=== PATIENT | male | born 1970 | race Caucasian/White ===

== ENCOUNTER 2022-12-30 15:34 | Emergency (ER) | payer OTHER, SELFPAY ==
[2022-12-30 15:35] VITALS: BP 153/90; PULSE 92; RESP 17; TEMP 36.7; O2SAT 97; BMI 27.8
--- NOTE | 2022-12-30 15:40 | PC.NURSE ---
DR [facility] AT BEDSIDE
--- NOTE | 2022-12-30 15:45 | HMH.EDGENADL ---
Discharge Plan Disposition Patient Disposition: Home, Self-Care Condition: Good Referrals Follow up/Referrals: Josh Mena [Primary Care Provider] - See instructions Activity Restrictions/Add. Instructions Additional Instructions/Restrictions: You were evaluated in the emergency department today. Please keep your wound clean and dry. Do not submerge under any water. Your stitches will need to be removed in 7 to 10 days. Return to the emergency department for new or worsening symptoms. Clinical Impressions Clinical Impression: Laceration of right thigh Qualifiers: Encounter type: initial encounter Qualified Code(s): S71.111A - Laceration without foreign body, right thigh, initial encounter Instructions Patient Instructions: DI for Laceration Repair Discharge ED Provider: Violeta Curiel General Adult HPI General Chief complaint: Wound/Laceration Stated complaint: RT upper thigh lac Time Seen by Provider: 12/30/22 15:39 Mode of Arrival: Ambulatory Source of Information: Patient Limitations: No Limitations Description of Symptoms (Recalled from ER Triage Doc. by RN): LACERATION TO RIGHT UPPER THIGH WITH UTILITY KNIFE History of Present Illness HPI narrative: Patient is a 52-year-old male who denies significant past medical history presented to the emergency department for evaluation with concern for a laceration to his right upper thigh. He was using a utility knife when it broke, and he cut the lateral aspect of his right upper thigh. Wound is hemostatic. No other injuries noted. He is unsure when his last tetanus shot was. He was well prior to this. No other concerns at this time. Related Data Allergies Allergy/AdvReac Type Severity Reaction Status Date / Time No Known Allergies Allergy Verified 12/30/22 15:52 [facility] Disclaimer: The information contained in this section may have been updated after the patient was seen, as this information can be updated by other users. Social History Smoking Status: Current every day smoker alcohol intake: never current occupational status: employed Travel in the last 8 weeks: None ROS Obtained: Yes All systems reviewed & no additional complaints except as documented Physical Exam General General appearance: alert and in no apparent distress Head Head exam: atraumatic and normocephalic Eye Eye exam: Present normal appearance, PERRL and EOMI ENT ENT exam: Present normal exam, normal oropharynx, mucous membranes moist and normal external ear exam Neck Neck exam: Present normal inspection, full ROM and trachea midline; Absent tenderness Chest Chest inspection: Present normal inspection and symmetric chest wall rise; Absent tenderness Respiratory Respiratory exam: Present normal lung sounds bilaterally; Absent respiratory distress, wheezes, stridor or accessory muscle use Cardiovascular Cardiovascular exam: Present regular rate and normal rhythm Abdominal Exam Abdominal exam: Present soft; Absent distention, tenderness or guarding Extremities Exam Extremities exam: Present normal inspection, full ROM and normal capillary refill; Absent tenderness or edema Back Exam Back exam: Present normal inspection and full ROM; Absent tenderness Neurological Exam Neurological exam: Present alert, oriented X3, CN II-XII intact and normal gait; Absent motor sensory deficit Psychiatric Psychiatric exam: Present normal affect and normal mood Skin Skin exam: Present warm, dry and other (2.5Centimeter laceration to the lateral aspect of the right upper thigh. Wound is linear, superficial, and hemostatic.) Medical Decision Making Medical Records Medical records reviewed: Yes I reviewed the patient's medical records. Abdulaziz Inquiry Pt receiving controlled substance: No Vital Signs: 12/30/22 15:35 12/30/22 15:56 12/30/22 16:30 Temperature 98.0 F Temperature Source Oral Pulse Rate 77 75 Pulse Rate [Radial
[2022-12-30 15:56] VITALS: BP 122/73; PULSE 77; O2SAT 96
[2022-12-30 16:30] VITALS: BP 127/80; PULSE 75; O2SAT 95
[2022-12-30 17:00] VITALS: BP 126/86; PULSE 65; O2SAT 97
[2022-12-30 17:15] VITALS: BP 126/86; PULSE 72; RESP 17; TEMP 36.8; O2SAT 96
== END 2022-12-30 17:15 | disposition home or self-care (01) ==
PROVIDERS: Emergency Provider Emergency Medicine; PCP Family Medicine
DX: S71.111A Laceration without foreign body, right thigh, initial encounter (principal); W26.0XXA Contact with knife, initial encounter; F17.200 Nicotine dependence, unspecified, uncomplicated; Z23 Encounter for immunization
CPT/HCPCS: 12001; 90715; 96372; 99283

== ENCOUNTER 2023-09-02 17:08 | Emergency (ER) | payer OTHER, SELFPAY ==
[2023-09-02 17:25] VITALS: BP 143/77; PULSE 74; RESP 20; TEMP 36.9; O2SAT 96; BMI 29.5
--- NOTE | 2023-09-02 17:31 | EXP.UTC ---
Discharge Plan Disposition Patient Disposition: Home, Self-Care Condition: Good Prescriptions Prescriptions: New prednisone 20 mg tablet 20 mg PO BID 3 Days Qty: 6 0RF polymyxin B sulf-trimethoprim 10,000 unit- 1 mg/mL drops 1 drp Eye-Left Q3H 7 Days Qty: 10 0RF Rx Instructions: while awake; do not exceed 6 doses in 24 hours No Action lamotrigine 150 mg tablet 150 mg PO DAILY atorvastatin 80 mg Tablet 80 mg PO HS amlodipine 10 mg Tablet 10 mg PO DAILY losartan 100 mg Tablet 100 mg PO DAILY sertraline 150 mg Capsule 150 mg PO DAILY Referrals Follow up/Referrals: Josh Mena [Primary Care Provider] - See instructions Activity Restrictions/Add. Instructions Additional Instructions/Restrictions: Use the eye drops as directed. Strict hand washing in the house hold, because conjunctivitis is very contagious. Follow up with your regular doctor. GO TO THE ER FOR ANY WORSENING SYMPTOMS OR CONCERNS Clinical Impressions Clinical Impression: Conjunctivitis of left eye Stand Alone Forms Stand Alone Forms: Work/School Release Instructions Patient Instructions: How to Instill Eye Drops, DI for Conjunctivitis Discharge ED Provider: Mychal Givens [facility] General Stated complaint: LT eye irritation Time Seen by Provider: 09/02/23 17:29 History of Present Illness Provider Complaint: He states that for the past 2 days he has had left eye irritation, redness, and mild swelling of his lower eye lid. He denies any injury, foreign body, or exposure to allergens. Related Data Home Medications Medication Instructions Recorded Confirmed amlodipine 10 mg tablet 10 mg PO DAILY 09/02/23 09/02/23 atorvastatin 80 mg tablet 80 mg PO HS 09/02/23 09/02/23 lamotrigine 150 mg tablet 150 mg PO DAILY 09/02/23 09/02/23 losartan 100 mg tablet 100 mg PO DAILY 09/02/23 09/02/23 sertraline 150 mg capsule 150 mg PO DAILY 09/02/23 09/02/23 Previous Rx's Medication Instructions Recorded polymyxin B sulfate 10,000 1 drp Eye-Left Q3H 7 days #10 mL 09/02/23 unit-trimethoprim 1 mg/mL eye drops prednisone 20 mg tablet 20 mg PO BID 3 days #6 tabs 09/02/23 Allergies Allergy/AdvReac Type Severity Reaction Status Date / Time No Known Allergies Allergy Verified 12/30/22 15:[address] [facility] Disclaimer: The information contained in this section may have been updated after the patient was seen, as this information can be updated by other users. Medical History (Updated 09/02/23 @ 18:30 by Mychal Givens APRN) Depression Anxiety Diabetes mellitus, type 2 Hyperlipidemia Hypertension Social History (Updated 12/30/22 @ 20:06 by Violeta Curiel DO) Smoking Status: Current every day smoker alcohol intake: never current occupational status: employed Travel in the last 8 weeks: None ROS Obtained: Yes All systems reviewed & no additional complaints except as documented Constitutional Constitutional: Denies chills and Denies fever(s) Eyes Eyes: Reports as per HPI, Denies change in vision and Reports eye discharge ENT Ears, Nose, Mouth, and Throat: Denies dizziness, Denies otalgia and Denies sore throat Cardiovascular Cardiovascular: Denies chest pain Respiratory Respiratory: Denies shortness of breath, Denies chest congestion, Denies cough, Denies stridor and Denies wheezing Gastrointestinal Gastrointestingal: Denies nausea or vomiting Musculoskeletal Musculoskeletal: Reports system reviewed and no additional complaints, except as documented and Denies arthralgias Integumentary/Breasts Skin/Breast: Denies rash Neurologic Neurologic: Denies dizziness and Denies paresthesias Allergic/Immunologic Allergic/Immunologic: Denies wheezing Physical Exam General General appearance: alert and in no apparent distress Head Head exam: atraumatic, normocephalic and normal inspection Eye Eye exam: Present PERRL and EOMI Expanded Eye Exam Eyelids: left: erythema and swelling eyelids and right: normal inspection Pupils: Left: size (2), Right: size (2) and Bilateral: regular, round and reactive Sclera/Conjunctival: left: injection and exudate and right: normal inspection ENT ENT exam: Present normal exam, normal oropharynx, mucous membranes moist, TM's normal bilaterally and normal external ear exam Neck Neck exam: Present normal inspection, full ROM and trachea midline; Absent meningismus or lymphadenopathy Chest Chest inspection: Present normal inspection and symmetric chest wall rise; Absent tenderness Respiratory Respiratory exam: Present normal lung sounds bilaterally; Absent respiratory distress Cardiovascular Cardiovascular exam: Present regular rate and normal rhythm; Absent JVD Abdominal Exam Abdominal exam: Present soft and normal bowel sounds; Absent distention, tenderness or guarding Extremities Exam Extremities exam: Present normal inspection, full ROM and normal capillary refill; Absent calf tenderness Back Exam Back exam: Present normal inspection; Absent tenderness Neurological Exam Neurological exam: Present alert and oriented X3 Psychiatric Psychiatric exam: Present normal affect and normal mood Skin Skin exam: Present warm, dry, intact and normal color Lymphatic Lymphatic Findings: no adenopathy Medical Decision Making Medical Records Medical records reviewed: No I reviewed the patient's medical records. Abdulaziz Inquiry Pt receiving controlled substance: No
[2023-09-02 18:25] VITALS: BP 143/77; PULSE 74; RESP 20; TEMP 36.9; O2SAT 96
== END 2023-09-02 18:33 | disposition home or self-care (01) ==
PROVIDERS: Emergency Provider Nurse Practitioner Family; PCP Family Medicine
DX: H10.32 Unspecified acute conjunctivitis, left eye (principal); H53.142 Visual discomfort, left eye
CPT/HCPCS: 99204; 99212; G0463

== ENCOUNTER 2023-11-11 13:56 | Emergency (ER) | payer OTHER, SELFPAY ==
--- NOTE | 2023-11-11 14:08 | XR_ITS ---
PROCEDURE INFORMATION: Exam: XR Right Foot Exam date and time: 11/11/2023 2:04 PM Age: 53 years old Clinical indication: Injury or trauma; Other: Dropped object; Crushing; Toes; Right greater toe; Patient HX: Dropped railroad tie on foot, bruising noted; Additional info: Pain TECHNIQUE: Imaging protocol: Radiologic exam of the right foot. Views: 3 or more views. COMPARISON: No relevant prior studies available. FINDINGS: Bones/joints: Comminuted intra-articular fracture in the proximal half of the 1st distal phalanx is in anatomic alignment. No dislocation. No other fractures or focal bone lesions. Plantar heel spur. Soft tissues: No masses, soft tissue gas, or radiopaque foreign bodies. IMPRESSION: Acute, nondisplaced, intra-articular fracture in the base of the 1st distal phalanx. No dislocation.
[2023-11-11 14:27] VITALS: BP 159/88; PULSE 77; RESP 18; TEMP 36.6; O2SAT 97; BMI 28.8
--- NOTE | 2023-11-11 14:46 | ED_ITS ---
Discharge Plan Disposition Patient Disposition: Home, Self-Care Condition: Good Prescriptions Prescriptions: New mupirocin 2 % ointment 1 applic topical TID 7 Days Qty: 15 0RF amoxicillin-pot clavulanate 875-125 mg Tablet 1 tab PO Q12H Qty: 20 0RF No Action lamotrigine 150 mg tablet 150 mg PO DAILY atorvastatin 80 mg Tablet 80 mg PO HS amlodipine 10 mg Tablet 10 mg PO DAILY losartan 100 mg Tablet 100 mg PO DAILY sertraline 150 mg Capsule 150 mg PO DAILY prednisone 20 mg tablet 20 mg PO BID 3 Days Qty: 6 0RF polymyxin B sulf-trimethoprim 10,000 unit- 1 mg/mL drops 1 drp Eye-Left Q3H 7 Days Qty: 10 0RF Rx Instructions: while awake; do not exceed 6 doses in 24 hours Referrals Follow up/Referrals: Josh Mena [Primary Care Provider] - See instructions Ana Valle DPM [Staff Physician] - See instructions Activity Restrictions/Add. Instructions Additional Instructions/Restrictions: Rest the extremity, Elevate the extremity as tolerated while you are resting. Take ibuprofen or tylenol for pain. Follow up with Dr. Valle (podiatry). I put in a referral but you need to call her office and schedule an appointment. Follow up with your regular doctor. GO TO THE ER FOR ANY WORSENING SYMPTOMS Clinical Impressions Clinical Impression: Open fracture of great toe of right foot, Diabetes Stand Alone Forms Stand Alone Forms: Work/School Release Instructions Patient Instructions: How to Use Crutches, Toe Fracture, DI for Toe Fracture, How to Use a Walking Boot Print Language Print Language: Pakistani Discharge ED Provider: Mychal Givens [facility] General Stated complaint: AO Pain, bruising and swelling R big toe Mode of Arrival: Ambulatory Source of Information: Patient Limitations: No Limitations Time Seen by Provider: 11/11/23 14:46 Description of Symptoms (Recalled from Triage Doc. by RN): pt reports he dropped a rail road tie on his R foot yesterday. pt presents with R great toe erythema, edema, ecchymosis, and an open wound on the dorsal side. HEENT Symptoms (Recalled from RN notes): No Resp Symptoms (Recalled from RN notes): No Skin Symptoms (Recalled from RN notes): No MS Symptoms (Recalled from RN notes): Yes Functional Status (Recalled from RN notes): wnl History of Present Illness Provider Complaint: He states that he dropped a railroad tie on his right foot yesterday. He has had pain, swelling and bruising of his right great toe since then. He has an abrasion on around the base of his right great toe also. He is a diabetic. He denies any other injury. His tetanus immunization is up to date. Related Data Home Medications ?Medication ?Instructions ?Recorded ?Confirmed amlodipine 10 mg tablet 10 mg PO DAILY 09/02/23 09/02/23 atorvastatin 80 mg tablet 80 mg PO HS 09/02/23 09/02/23 lamotrigine 150 mg tablet 150 mg PO DAILY 09/02/23 09/02/23 losartan 100 mg tablet 100 mg PO DAILY 09/02/23 09/02/23 sertraline 150 mg capsule 150 mg PO DAILY 09/02/23 09/02/23 Previous Rx's ?Medication ?Instructions ?Recorded polymyxin B sulfate 10,000 1 drp Eye-Left Q3H 7 days #10 mL 09/02/23 unit-trimethoprim 1 mg/mL eye drops prednisone 20 mg tablet 20 mg PO BID 3 days #6 tabs 09/02/23 amoxicillin 875 mg-potassium 1 tab PO Q12H #20 tabs 11/11/23 clavulanate 125 mg tablet mupirocin 2 % topical ointment 1 applic topical TID 7 days #15 11/11/23 grams Allergies Allergy/AdvReac Type Severity Reaction Status Date / Time No Known Allergies Allergy Verified 12/30/22 15:52 Worker's Comp Is this a Worker's Comp case?: No [facility] Disclaimer: The information contained in this section may have been updated after the patient was seen, as this information can be updated by other users. Medical History (Updated 11/11/23 @ 15:02 by Mychal Givens APRN) Depression Anxiety Diabetes mellitus, type 2 Hyperlipidemia Hypertension Social History (Updated 12/30/22 @ 20:06 by Violeta Curiel DO) Smoking Status: Current every day smoker alcohol intake: never current occupational status: employed Travel in the last 8 weeks: None ROS Obtained: Yes All systems reviewed & no additional complaints except as documented Constitutional Constitutional: Denies chills and Denies fever(s) Eyes Eyes: Denies eye discharge ENT Ears, Nose, Mouth, and Throat: Denies dizziness, Denies otalgia and Denies sore throat Cardiovascular Cardiovascular: Denies chest pain Respiratory Respiratory: Denies shortness of breath, Denies chest congestion, Denies cough, Denies stridor and Denies wheezing Gastrointestinal Gastrointestingal: Denies nausea or vomiting Musculoskeletal Musculoskeletal: Reports as per HPI Integumentary/Breasts Skin/Breast: Reports as per HPI, Reports redness and Reports wounds Neurologic Neurologic: Denies dizziness and Denies paresthesias Allergic/Immunologic Allergic/Immunologic: Denies wheezing Physical Exam General General appearance: alert and in no apparent distress Head Head exam: atraumatic, normocephalic and normal inspection Eye Eye exam: Present normal appearance, PERRL and EOMI ENT ENT exam: Present normal exam, normal oropharynx, mucous membranes moist, TM's normal bilaterally and normal external ear exam Neck Neck exam: Present normal inspection, full ROM and trachea midline; Absent meningismus or lymphadenopathy Chest Chest inspection: Present normal inspection and symmetric chest wall rise; Absent tenderness Respiratory Respiratory exam: Present normal lung sounds bilaterally; Absent respiratory distress Cardiovascular Cardiovascular exam: Present regular rate and normal rhythm; Absent JVD Abdominal Exam Abdominal exam: Present soft and normal bowel sounds; Absent distention, tenderness or guarding Extremities Exam Extremities exam: Present normal capillary refill; Absent calf tenderness Expanded Lower Extremity Exam Right: Ankle exam: Present normal inspection and full ROM; Absent tenderness, tenderness over talofibular lig or anterior draw sign Foot/toe exam: Present full ROM, tenderness, swelling and abrasion; Absent laceration, ecchymosis, deformity, crepitus, dislocation, erythema, amputation, puncture wound, foreign body, calcaneal tenderness, tenderness at base of 5th m etatarsal, nail avulsion or subungual hematoma Neurovascular/Tendon exam: Present normal capillary refill, normal 2-point discrimination and normal fine/light touch; Absent pulse deficit, motor deficit, sensory deficit, tendon deficit, extremity cold to touch or pallor Gait: observed and limited by pain Back Exam Back exam: Present normal inspection; Absent tenderness Neurological Exam Neurological exam: Present alert and oriented X3 Psychiatric Psychiatric exam: Present normal affect and normal mood Skin Skin exam: Present other (abrasion on right foot) Lymphatic Lymphatic Findings: no adenopathy Medical Decision Making Medical Records Medical records reviewed: No I reviewed the patient's medical records. Abdulaziz Inquiry Pt receiving controlled substance: No Vital Signs: 11/11/23 14:27 Temperature 97.9 F Temperature Source Oral Pulse Rate [Left] 77 Respiratory Rate 18 Blood Pressure [Right Arm] 159/88 H Blood Pressure Mean [Right Arm] 111 Blood Pressure Source [Right Arm] Automatic Cuff Blood Pressure Position [Right Arm] Sitting 02 Sat by Pulse Oximetry 97 Oxygen Delivery Method Room Air Orders (Tests/Meds): ORDERS Category Date Time Status Foot XR right minimum 3 views [XR foot RT min 3V] Stat Exams 11/11/23 14:08 Taken Radiology Data #1: Image(s): Foot/Toes Image Reviewed: Yes I reviewed the patient's radiology image and Yes I have reviewed radiologist's interpretation Preliminary Findings: Abnormal Accession No. 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 Views: 3 or more views. COMPARISON: No relevant prior studies available. FINDINGS: Bones/joints: Comminuted intra-articular fracture in the proximal half of the 1st distal phalanx is in anatomic alignment. No dislocation. No other fractures or focal bone lesions. Plantar heel spur. Soft tissues: No masses, soft tissue gas, or radiopaque foreign bodies. IMPRESSION: Acute, nondisplaced, intra-articular fracture in the base of the 1st distal phalanx. No dislocation. Medical Decision Narrative: the abrasion of his great toe was cleaned very well with sterile ns and hibiclens. Procedures Risk/Benefits of Procedure(s) Were Explained: Yes Orthopedic Splinting/Casting Injury #1: Side: right Lower Extremity Injury Location: foot Lower Extremity Immobilizer: boot orthosis and applied by nurse/dr velez Other Orthopedic Equipment: crutches Post Cast/Splinting Neuro Status: intact and no change Post Cast/Splinting Vasc Status: intact and no change
[2023-11-11 15:11] VITALS: BP 159/88; PULSE 77; RESP 18; TEMP 36.6
== END 2023-11-11 15:12 | disposition home or self-care (01) ==
PROVIDERS: Emergency Provider Nurse Practitioner Family; PCP Family Medicine
DX: S92.424B Nondisplaced fracture of distal phalanx of right great toe, initial encounter for open fracture (principal); E11.9 Type 2 diabetes mellitus without complications; W20.8XXA Other cause of strike by thrown, projected or falling object, initial encounter
CPT/HCPCS: 73630; 99212; 99214; G0463

== ENCOUNTER 2023-11-14 16:56 | Outpatient (CLI) | payer OTHER, SELFPAY | END 2023-11-14 23:59 | disposition home or self-care (01) | LOC: LAB.DROPOF 16:56 | PROVIDERS: PCP Podiatrist; Visit Provider Podiatrist | DX: S92.424B Nondisplaced fracture of distal phalanx of right great toe, initial encounter for open fracture (principal); X58.XXXA Exposure to other specified factors, initial encounter; Y93.H2 Activity, gardening and landscaping; Y92.007 Garden or yard of unspecified non-institutional (private) residence as the place of occurrence of the external cause; Y99.8 Other external cause status | CPT/HCPCS: 87070; 87077; 87186; 87205 ==

== ENCOUNTER 2023-12-06 09:38 | Outpatient (CLI) | payer OTHER, SELFPAY ==
--- NOTE | 2023-12-06 09:42 | XR_ITS ---
FINAL REPORT CLINICAL HISTORY: right hallux open fracture COMPARISON: None FINDINGS: RIGHT FOOT 3 views of the right foot were obtained. There is a comminuted fracture of the distal phalanx of the first toe, mildly displaced. There is a well-corticated bone fragment noted in the lateral joint space margin. Visualized joint spaces are otherwise normally aligned. Soft tissues are unremarkable. A moderate plantar calcaneal spur is present. IMPRESSION: Comminuted fracture of the distal phalanx of the first toe, mildly displaced. Reviewed, Interpreted and Dictated by Bal Alvares MD Transcribed by Tara Pedersen Authenticated and [facility]
== END 2023-12-06 23:59 | disposition home or self-care (01) ==
LOC: RAD 09:39
PROVIDERS: PCP Family Medicine; Visit Provider Podiatrist
DX: M79.674 Pain in right toe(s) (principal); S92.424B Nondisplaced fracture of distal phalanx of right great toe, initial encounter for open fracture; S90.411A Abrasion, right great toe, initial encounter
CPT/HCPCS: 73630

== ENCOUNTER 2023-12-31 13:43 | Outpatient (CLI) | payer OTHER, SELFPAY ==
--- NOTE | 2023-12-31 13:50 | XR_ITS ---
FINAL REPORT CLINICAL HISTORY: evaluate right hallux fracture COMPARISON: 12/06/2023 FINDINGS: AP, oblique and lateral views of the right foot were obtained. There has been interval healing of the previously noted fracture of the distal phalanx of the great toe. Fracture line still is clearly visible. There is no new osseous abnormality. Joint spaces are preserved. Soft tissue edema has essentially resolved. IMPRESSION: Interval healing distal phalanx fracture of the great toe. Reviewed, Interpreted and Dictated by Cleo Beasley MD Transcribed by Azra Jackson Authenticated and [facility]
== END 2023-12-31 23:59 | disposition home or self-care (01) ==
LOC: RAD 13:46
PROVIDERS: PCP Ophthalmology; Visit Provider Podiatrist
DX: M79.674 Pain in right toe(s) (principal); S92.424D Nondisplaced fracture of distal phalanx of right great toe, subsequent encounter for fracture with routine healing
CPT/HCPCS: 73630

== ENCOUNTER 2024-12-15 10:09 | Emergency (ER) | payer OTHER, SELFPAY ==
[2024-12-15 10:16] VITALS: BP 136/109; PULSE 99; O2SAT 99
--- OUTSIDE RECORDS SUMMARY | 2024-12-15 10:25 | XMS_ITS | Clinical Summary ---
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 Name Role Phone Unavailable Primary Care Provider Unavailabl e Allergies No known active allergies Medications No known medications Immunizations Immunization Administration Dates Next Due Tdap 11/02/2016 Social History Tobacco Use Types Packs/Day Years Used Date Smoking Tobacco: Every Day Cigarettes 2 35 Smokeless Tobacco: Never Alcohol Use Standard Drinks/Week Comments No 0 (1 standard drink = 0.6 oz pur e alcohol) Sexually Active Control Partners Comments Never Sex and Gender Information Value Date Recorded Sex Assigned at Not on file Legal Sex Male 6:39 PM EDT Gender Identity Not on file Sexual Orientation Not on file Obstetrics History Last Filed Vital Signs Vital Sign Reading Time Taken Comments Blood Pressure 146/105 11/02/2016 6:58 PM EDT Pulse 98 11/02/2016 6:58 PM EDT Temperature 36.3 C (97.4 F) 11/02/2016 6:58 PM EDT Respiratory Rate 20 11/02/2016 6:58 PM EDT Oxygen Saturation 98% 11/02/2016 6:58 PM EDT Inhaled Oxygen Concentration - - Weight 99.8 kg (220 lb) 11/02/2016 6:58 PM EDT Height 180.3 cm (5' 11 ) 11/02/2016 6:58 PM EDT Body Mass Index 30.68 11/02/2016 6:58 PM EDT Plan of Treatment Health Maintenance Due Date Last Done Comments Annual Wellness Exam 1973 Hepatitis B Vaccine (1 of 3 - 19+ 3-dose series) 1989 Cologuard 10/23/2015 Colon Cancer Screening 10/23/2015 Colonoscopy 10/23/2015 FIT 10/23/2015 Sigmoidoscopy 10/23/2015 Virtual Colonography 10/23/2015 Low Dose Lung Cancer Screening 2020 Pneumococcal Vaccine 50+ (1 of 1 - PCV) 2020 Zoster (1 of 2) 2020 COVID-19 Vaccine (1 - 2023-2 5 season) 2023 Influenza Vaccine (#1) 2024 DTaP/TDaP/Td (2 - Td or Tdap) 11/02/2026 11/02/2016 Meningococcal B Vaccine Aged Out No l onger eligible based on patient's age to complete this [place] [address] indic[place] [facility] Member Subscriber Plan / Payer (Ef fective 2016-Present) Name:Gavino Barry Member ID:[id number] Relation to Subscriber:Self Name:Gavino Barry Subscriber ID:[id number] Payer ID:Not on file Type:Not on file Address: [address] [address] [place] [address] indic[address] [id number] [facility]
--- OUTSIDE RECORDS SUMMARY | 2024-12-15 10:25 | XMS_ITS | Clinical Summary ---
Author Organization [facility] Address [address] [place] [address] Care Team Providers Care Pin Ticket Machine Operator Name Role Phone Josh Mena MD Primary Care Provider [phone] Allergies Active Allergy Reactions Criticality Noted Date Comments Lisinopril Cough 02/28/2018 Metformin Myalgia 07/04/2022 Medications glucose blood test stripIndications:Pr e-diabetes One time day 100 each 1 9 Active [place]-3 Fatty Acids (fish oil) 1000 MG capsule capsuleIndications: Mixed hyperlipidemia Take 2 capsules by mouth 2 (Two) Times a Day With Meals. 360 capsule 3 3 Active tadalafil (Cialis) 20 MG tabletIndications:E rectile dysfunction due to diseases classified elsewhere Take 1 tablet by mouth Daily As Needed for Erectile Dysfunction. 20 tablet 5 3 Active amLODIPine (NORVASC) 10 MG tabletIndications:E ssential hypertension Take 1 tablet by mouth Daily. 90 tablet 1 4 Active losartan (COZAAR) 100 MG tabletIndications:E ssential hypertension Take 1 tablet by mouth Daily. 90 tablet 1 4 Active atorvastatin (LIPITOR) 80 MG tabletIndications:M ixed hyperlipidemia Take 1 tablet by mouth Daily. 90 tablet 1 4 Active sertraline (ZOLOFT) 100 MG tabletIndications:B ipolar depression Take 2 tablets by mouth Daily. 180 tablet 1 4 Active lamoTRIgine (LaMICtal) 150 MG tabletIndications:B ipolar depression Take 1 tablet by mouth Daily. 90 tablet 1 4 Active predniSONE (DELTASONE) 20 MG tabletIndications:A cute non-recurrent maxillary sinusitis Take 2 tablets by mouth Daily. 10 tablet 4 Active Chlorcyclizine-Pseu doephed 25-60 MG tabletIndications:A cute non-recurrent maxillary sinusitis 1/2-1 po q 8 hours PRN 30 tablet 1 4 Active Active Problems Problem Noted Date Diagnosed Date Mixed hyperlipidemia 02/05/2019 Elevated cholesterol 04/25/2018 Hyperglycemia 04/25/2018 Other male erectile dysfunction 04/25/2018 Essential hypertension 02/14/2018 Witnessed apneic spells 02/14/2018 Gastroesophageal reflux disease 02/14/2018 Alcoholism /alcohol abuse 02/14/2018 Tobacco abuse 02/14/2018 Drug abuse 02/14/2018 Acute bilateral low back pain with sciatica 04/2017 Chronic pain of left knee 02/14/2018 Resolved Problems Problem Noted Date Diagnosed Date Resolved Date Pre-diabetes 04/25/2018 07/04/2022 Encounters Date Type Department Care Team Description 10/02/2024 Refill [facility] [address] [place] [address] Josh Mena MD Mixed hyperlipidemia; Essential hypertension from Last 3 Months Immunizations Immunization Administration Dates Next Due Td (TDVAX) 06/19/1996 Tdap 12/30/2022,11/02/2016,07/15/2014 Family History Medical History Relation Name Comments Cancer Father Heart attack Father Hypertension Father Diabetes Mother Relation Name Status Comments Father Mother Social History Tobacco Use Types Packs/Day Years Used Date Smoking Tobacco: Every Day Cigarettes Smokeless Tobacco: Current Chew Tobacco Cessation:Ready to Q uit: No Comments:Every other day Alcohol Use Standard Drinks/Week Comments Yes 0 (1 standard drink = 0.6 oz pur e alcohol) 6 pack a week PHQ-2 Answer Date Recorded Retired PHQ-9: Brief Depression Severity Measure Score 0 07/04/2022 PHQ-2 Answer Date Recorded Patient Health Questionnaire-2 Score 0 04/08/2024 Sex and Gender Information Value Date Recorded Sex Assigned at Not on file Legal Sex Male 10:36 AM EDT Gender Identity Not on file Sexual Orientation Not on file Last Filed Vital Signs Vital Sign Reading Time Taken Comments Blood Pressure 140/90 04/08/2024 8:30 AM EST Pulse 98 04/08/2024 8:30 AM EST Temperature 36.7 C (98 F) 04/08/2024 8:30 AM EST Respiratory Rate 16 04/08/2024 8:30 AM EST Oxygen Saturation 96% 04/08/2024 8:30 AM EST Inhaled Oxygen Concentration - - Weight 94.8 kg (209 lb) 04/08/2024 8:30 AM EST Height 180.3 cm (5' 11 ) 04/08/2024 8:30 AM EST Body Mass Index 29.15 04/08/2024 8:30 AM EST Plan of Treatment Health Maintenance Due Date Last Done Comments Pneumococcal Vaccine 50+ (1 of 2 - PCV) 1989 COLOGUARD 10/23/2015 COLON CANCER SCREENING 5 YEA R SIGMOIDOSCOPY 10/23/2015 COLONOSCOPY 10/23/2015 COLORECTAL CANCER SCREENING 10/23/2015 CT COLONOGRAPHY 10/23/2015 FECAL OCCULT BLOOD TEST 10/23/2015 FIT Testing (1 year) 10/23/2015 ZOSTER VACCINE (1 of 2) 2020 ANNUAL PHYSICAL 04/27/2021 04/27/2020 COVID-19 Vaccine (3 - 2023-2 5 season) 2023 08/23/2020, 08/02/2020 INFLUENZA VACCINE 01/14/2025 LIPID PANEL 04/08/2025 04/08/2024, 12/16, 02/02/2021, Additional history exists TDAP/TD VACCINES (5 - Td or Tdap) 12/30/2032 12/30/2022, 11/02/2016, 07/15/2014, Additional history exists HEPATITIS C SCREENING Completed 04/27/2020 HEMOGLOBIN A1C Discontinued 04/08/2024, 01/15, 07/30/2020, Additional history exists Procedures Procedure Name Priority Date/Time Associated Diagnosis Comments HEMOGLOBIN A1C Routine 04/08/2024 8:50 AM EST Hyperglycemia LIPID PANEL Routine 04/08/2024 8:50 AM EST Mixed hyperlipidemia HEPATITIS C ANTIBODY Routine 04/27/2020 8:14 AM EST Encounter for hepatitis C screening test for low risk patient from Last 3 Months or Most Recently Relevant to Health Maintenance Results * (ABNORMAL) Hemoglobin A1c (04/08/2024 8:50 AM EST) Hemoglobin A1C 5.80(H) 4.80 - 5.60 % [facility] Comment: Hemoglobin A1C Ranges: Increased Risk for Diabetes 5.7% to 6.4% Diabetes >= 6.5% Diabetic Goal < 7.0% Blood 04/08/2024 8:50 AM EST 04/08/2024 Narrative [facility] (AMBULATORY) - 04/08/2024 8:07 PM EST Performed at: [address] [place] [id number] Founder President And Ceo: Gavino Saab MD, Phone: [phone] Patient Fasting: Y us Josh Mena MD LAB BLOOD ORDERABLES Final Resu lt [facility] (AMBULATORY) [address] [place] [address], [facility] [address] [place] [address], * (ABNORMAL) Lipid Panel (04/08/2024 8:50 AM EST) Total Cholesterol 316(H) 0 - 200 mg/dL [facility] Comment: Cholesterol Reference Ranges (U.S. Department of Health and Human Services ATP III Classifications) Desirable <200 mg/dL Borderline High 200-239 mg/dL High Risk >240 mg/dL Triglyceride Reference Ranges (U.S. Department of Health and Human Services ATP III Classifications) Normal <150 mg/dL Borderline High 150-199 mg/dL High 200-499 mg/dL Very High >500 mg/dL HDL Reference Ranges (U.S. Department of Health and Human Services ATP III Classifications) Low <40 mg/dl (major risk factor for CHD) High >60 mg/dl ('negative' risk factor for CHD) LDL Reference Ranges (U.S. Department of Health and Human Services ATP III Classifications) Optimal <100 mg/dL Near Optimal 100-129 mg/dL Borderline High 130-159 mg/dL High 160-189 mg/dL Very High >189 mg/dL Triglycerides 301(H) 0 - 150 mg/dL [facility] HDL Cholesterol 42 40 - 60 mg/dL [facility] VLDL Cholesterol Matt 61(H) 5 - 40 mg/dL [facility] LDL Chol Calc (NIH) 213(H) 0 - 100 mg/dL [facility] Blood 04/08/2024 8:50 AM EST 04/08/2024 Narrative [facility] (AMBULATORY) - 04/08/2024 8:07 PM EST Performed at: [address] [place] [id number] Founder President And Ceo: Gavino Saab MD, Phone: [phone] Patient Fasting: Y Josh Mena MD LAB BLOOD ORDERABLES Final Resu lt [facility] (AMBULATORY) [address] [place] [address], [facility] [address] [place] [address], * Hepatitis C antibody (04/27/2020 8:14 AM EST) [facility] Hep C Virus Ab <0.1 0.0 - 0.9 s/co ratio [facility] Comment: Negative: < 0.8 Indeterminate: 0.8 - 0.9 Positive: > 0.9 The CDC recommends that a positive HCV antibody result be followed up with a HCV Nucleic Acid Amplification test (651110). Blood 04/27/2020 8:14 AM EST 04/27/2020 Narrative [facility] (AMBULATORY) - 04/28/2020 4:07 AM EST Performed at: [address] [place] [address], [place], [place] [id number] Founder President And Ceo: Bhupendra Rojas PhD, Phone: [phone] Patient Fasting: Y Azra J Kelly SCRUB NURSE LAB BLOOD ORDERABLES Final Resul t [facility] ([facility]BULATORY) [address] [place] [address], [place] [phone] [facility] [address] [place] [address], [place] [phone] from Last 3 Months or Most Recently Relevant to Health Maintenance Insurance [employer] Care Teams Pin Ticket Machine Operator Relationship Specialty Start Date End Date Josh Mena MD [address] [place] [id number] PCP - General Family Medicine 07/04/21
--- OUTSIDE RECORDS SUMMARY | 2024-12-15 10:25 | XMS_ITS | Encounter Summary ---
Author Organization [facility] Address [address] [place] [id number] Care Team Providers Care Media Technician Name Role Phone Josh Mena MD Primary Care Provider Reason for Visit * Reason Onset Date Comments Med Refill 12/26/2023 Encounter Details Date Type Department Care Team (Late st Contact Info) Description 12/26/2023 Refill [facility] [address] [place] [phone] Josh Mena MD [address] [place] [id number] Bipolar depression; Essential hypertension; Mixed hyperlipidemia Social History Tobacco Use Types Packs/Day Years Used Date Smoking Tobacco: Every Day Cigarettes Smokeless Tobacco: Current Chew Comments:Every other day Alcohol Use Standard Drinks/Week Comments Yes 0 (1 standard drink = 0.6 oz pur e alcohol) 6 pack a week PHQ-2 Answer Date Recorded Retired PHQ-9: Brief Depression Severity Measure Score 0 07/04/2022 PHQ-2 Answer Date Recorded Retired PHQ-9: Brief Depression Severity Measure Score 0 07/04/2022 Sex and Gender Information Value Date Recorded Sex Assigned at Not on file Legal Sex Male 10:36 AM EDT Gender Identity Not on file Sexual Orientation Not on file documented as of this encounter Miscellaneous Notes * Telephone Encounter - Nelly Young RegSched Rep - 12/26/2023 1:59 PM EDT Caller: Sherley Booth Relationship: Emergency Contact Best call back number: [phone] Requested Prescriptions: Requested Prescriptions Pending Prescriptions Disp Refills lamoTRIgine (LaMICtal) 150 MG tablet 30 tablet 0 Sig: Take 1 tablet by mouth Daily. losartan (COZAAR) 100 MG tablet 90 tablet 1 Sig: Take 1 tablet by mouth Daily. sertraline (ZOLOFT) 100 MG tablet 45 tablet 0 Sig: Take 1.5 tablets by mouth Daily. amLODIPine (NORVASC) 10 MG tablet 90 tablet 1 Sig: Take 1 tablet by mouth Daily. atorvastatin (LIPITOR) 80 MG tablet 90 tablet 1 Sig: Take 1 tablet by mouth Daily. Pharmacy where request should be sent: [facility] [id number] - [place], [place] - [address] [facility] - [phone] - [phone] FX Last office visit with prescribing clinician: 01/05/2023 Last telemedicine visit with prescribing clinician: Visit date not found Next office visit with prescribing clinician: Visit date not found Additional details provided by patient: Does the patient have less than a 3 day supply: [x] Yes [] No Would you like a call back once the refill request has been completed: [] Yes [x] No If the office needs to give you a call back, can they leave a voicemail: [] Yes [x] No Megan Armstrong 12/26/23 14:00 EDT documented in this encounter Plan of Treatment Not on file documented as of this encounter Visit Diagnoses Diagnosis Bipolar depression Bipolar I disorder, most recent episode (or current) depressed, unspecified Essential hypertension Unspecified essential hypertension Mixed hyperlipidemia documented in this encounter Care Teams Media Technician Relationship Specialty Start Date End Date [place] [address] PCP - General Family Medicine 07/04/21 documented as of this encounter
--- OUTSIDE RECORDS SUMMARY | 2024-12-15 10:25 | XMS_ITS | Encounter Summary ---
Author Organization [facility] Address [address] [place] [address] Care Team Providers Care Road Sign Installer Name Role Phone Josh Mena MD Primary Care Provider [phone] Reason for Visit * Reason Comments Med Refill Encounter Details Date Type Department Care Team (Late st Contact Info) Description 10/02/2024 Refill [facility] [address] [facility] [place] [address] Josh Mena MD [address] [facility] [place] [address] Mixed hyperlipidemia; Essential hypertension Social History Tobacco Use Types Packs/Day Years [...] on file documented as of this encounter Plan of Treatment Not on file documented as of this encounter Visit Diagnoses Diagnosis Mixed hyperlipidemia Essential hypertension Unspecified essential hypertension documented in this encounter Care Teams Road Sign Installer Relationship Specialty Start Date End Date Josh Mena MD [address] [place] [address] PCP - General Family Medicine 07/04/21 documented as of this encounter
[2024-12-15 10:27] VITALS: BP 136/109; PULSE 98; RESP 20; TEMP 36.6; O2SAT 99; BMI 28.8
[2024-12-15 10:30] VITALS: BP 120/89; PULSE 82; O2SAT 97
--- NOTE | 2024-12-15 10:35 | ED_ITS ---
<Statement entered by Jacob Munroe MD - 12/15/24 13:30> I was consulted by the PRASANTH, and we discussed the complexity of the problems being addressed. I approve the treatment and management plan for this patient's care in the emergency department, thus performing a substantive portion of the medical decision making. Jacob Munroe MD Discharge Plan Disposition Patient Disposition: Home, Self-Care Condition: Good Prescriptions Prescriptions: New amoxicillin-pot clavulanate 875-125 mg tablet 1 tab PO Q12H Qty: 20 0RF No Action doxycycline hyclate 100 mg capsule 100 mg PO BID 7 Days Qty: 14 0RF gentamicin 0.1 % ointment 1 applic topical BID 21 Days Qty: 30 2RF lamotrigine 150 mg tablet 150 mg PO DAILY atorvastatin 80 mg Tablet 80 mg PO HS amlodipine 10 mg Tablet 10 mg PO DAILY losartan 100 mg Tablet 100 mg PO DAILY sertraline 150 mg Capsule 150 mg PO DAILY polymyxin B sulf-trimethoprim 10,000 unit- 1 mg/mL drops 1 drp Eye-Left Q3H 7 Days Qty: 10 0RF Rx Instructions: while awake; do not exceed 6 doses in 24 hours Referrals Follow up/Referrals: Fady Martinez MD [Primary Care Provider, Opthalmology] - See instructions Activity Restrictions/Add. Instructions Additional Instructions/Restrictions: You were seen for a dog bite. Please follow up with your PCP to recheck in 48 hours. Take your antibiotics as prescribed. Return to ER for increased pain, redness or fever. Clinical Impressions Clinical Impression: Dog bite, Laceration of lip Instructions Patient Instructions: DI for Laceration Repair, DI for Dog Bite, How to Care for Absorbable Sutures Print Language Print Language: Mohawk Discharge ED Provider: Jacob Munroe General Adult HPI General Chief complaint: Animal Bite Stated complaint: AO 12/15/2024 left side bottom lip laceration Time Seen by Provider: 12/15/24 10:14 Mode of Arrival: Ambulatory Source of Information: Patient Description of Symptoms (Recalled from ER Triage Doc. by RN): pt dog ran out infront of and patient grabbed at dog and dog bit patient on bottom lip left side. edges are approxiamate and animal is up to date on all shots History of Present Illness HPI narrative: Patient presents with reports of a dog bite. He reports that his dog bit him after he jumped towards it. He reports that the dog is up-to-date on vaccinations. He has a laceration to his chin and lower lip. Denies any fevers or vomiting. Tetanus is up-to-date, 01/2023. He does have a history of diabetes however has been managing with diet and exercise, off medications for 1 year. MD complaint: Dog bite Onset (ago): hour(s) (1) Location: face Radiation: non-radiation Severity: mild Consistency: constant Relieving factors: none Exacerbating factors: none Associated symptoms: denies other symptoms Treatments prior to arrival: none Related Data Home Medications ?Medication ?Instructions ?Recorded ?Confirmed amlodipine 10 mg tablet 10 mg PO DAILY 09/02/2312/15 atorvastatin 80 mg tablet 80 mg PO HS 09/02/23 4 lamotrigine 150 mg tablet 150 mg PO DAILY 09/02/23 losartan 100 mg tablet 100 mg PO DAILY 09/02/23 sertraline 150 mg capsule 150 mg PO DAILY 09/02/23 Previous Rx's ?Medication ?Instructions ?Recorded polymyxin B sulfate 10,000 1 drp Eye-Left Q3H 7 days # 10 mL 09/02/23 unit-trimethoprim 1 mg/mL eye drops doxycycline hyclate 100 mg capsule 100 mg PO BID 7 day s #14 caps 11/19/23 gentamicin 0.1 % topical ointment 1 applic topical BID cellulitis 3 11/19/23 weeks #30 grams amoxicillin 875 mg-potassium 1 tab PO Q12H #20 tabs clavulanate 125 mg tablet Allergies Allergy/AdvReac Type Severity Reaction Status Date / Time No Known Allergies Allergy Verified 12/31/23 14:15 [facility] Disclaimer: The information contained in this section may have been updated after the patient was seen, as this information can be updated by other users. Medical History Depression Anxiety Diabetes mellitus, type 2 Hyperlipidemia Hypertension Social History Smoking Status: Current every day smoker alcohol intake: never current occupational status: employed Travel in the last 8 weeks?: None Have you lived/traveled outside US in past 30 days?: No Contact w/someone who lives/traveled outside US past 30 days?: No Exposure to someone with infectious disease in past 14 days?: No Do you have a fever (greater than 100.4 F or 38 C)?: No Have you tested positive for COVID-19?: No Exposed to someone with COVID-19 in past 14 days?: No Do you have a sore throat?: No Do you have a cough?: No Do you have any weakness?: No Do you have any diarrhea?: No Are you experiencing any unusual bleeding?: No Do you have any muscle aches/pain?: No Do you have any abdominal pain?: No Are you experiencing loss of taste or smell?: No ROS Obtained: Yes Systems reviewed as appropriate & no additional complaints except as documented Physical Exam General General appearance: alert and in no apparent distress Head Head exam: atraumatic and normocephalic Eye Eye exam: Present normal appearance and EOMI ENT ENT exam: Present other (dental caries. No tooth/ gum injury. Able to fully open mouth. Small 4 mm laceration below left chin. Another 1 cm laceration the lower lip on the left side. ) Chest Chest inspection: Present symmetric chest wall rise Respiratory Respiratory exam: Present normal lung sounds bilaterally; Absent wheezes or stridor Cardiovascular Cardiovascular exam: Present regular rate and normal rhythm; Absent systolic murmur Extremities Exam Extremities exam: Present full ROM Neurological Exam Neurological exam: Present alert and oriented X3 Psychiatric Psychiatric exam: Present normal affect and normal mood Skin Skin exam: Present warm, dry and intact Medical Decision Making Medical Records Screening: Per USPSTF and CDC recommendations, given the prevalence of disease in our region, it is our hospital?s policy to screen for HIV and viral Hepatitis for all patients aged 18 and over and those with ongoing risk factors. Abdulaziz Inquiry Pt receiving controlled substance: No Vital Signs: 12/15/24 10:16 12/15/24 10:27 12/15/24 10:30 Temperature 97.9 F Temperature Source Oral Pulse Rate 99 H 82 Pulse Rate [Left Radial] 98 H Respiratory Rate 20 Blood Pressure 136/109 H 120/89 Blood Pressure [Right Arm] 136/109 H Blood Pressure Mean [Right Arm] 118 02 Sat by Pulse Oximetry 99 99 97 Oxygen Delivery Method Room Air 12/15/24 10:44 12/15/24 11:00 Temperature Temperature Source Pulse Rate 83 83 Pulse Rate [Left Radial] Respiratory Rate Blood Pressure 146/97 H 147/94 H Blood Pressure [Right Arm] Blood Pressure Mean [Right Arm] 02 Sat by Pulse Oximetry 99 98 Oxygen Delivery Method Orders (Tests/Meds): ED MEDICATIONS Discontinued Medications Generic Name Dose Route Start Last Admin Trade Name Kathy PRN Reason Stop Dose Admin Lidocaine HCl 5 ml 12/15/24 10:33 12/15/24 10:38 Lidocaine 1% 5ml Pf Vial IJ 12/15/24 10:34 5 ml ONCE ONE Administration Medical Decision Narrative: In summary patient is a 54-year-old male who presents the emergency department for evaluation of dog bite. Patient is slightly hypertensive upon arrival, afebrile. Laceration to lip and below chin. The lip laceration is somewhat gaping, closed loosely with 5-0 fast gut suture. The small chin laceration left to close by secondary intention. Chin laceration irrigated and cleaned, bandage applied. Upon repeat evaluation patient resting comfortably. Given this patient appropriate for discharge home with a prescription for Augmentin, advised follow-up with PCP. Procedures Laceration Laceration 1: Site: lip Side (If applicable): left Size (cm): 1 Description: irregular Depth: simple, single layer Local Anesthetic: lidocaine 1% Amount of anesthesia used (mL): 0.5 Pre-repair: irrigated extensively Skin layer closed with: other (fast gut) Size (cm): 5-0 Number of sutures: 1 Technique: simple, interrupted Critical Care Critical Care Time Critical Care Time: No
[2024-12-15] MEDS: LIDOCAINE 1% 5ML PF VIAL 5 ML IJ (10:38)
[2024-12-15 10:44] VITALS: BP 146/97; PULSE 83; O2SAT 99
[2024-12-15 11:00] VITALS: BP 147/94; PULSE 83; O2SAT 98
[2024-12-15 11:25] VITALS: BP 134/85; PULSE 77; RESP 20; TEMP 36.7; O2SAT 98
== END 2024-12-15 11:26 | disposition home or self-care (01) ==
PROVIDERS: Emergency Provider Student in an Organized Health Care Education/Training Program; PCP Ophthalmology
DX: S01.551A Open bite of lip, initial encounter (principal); S01.85XA Open bite of other part of head, initial encounter; E11.9 Type 2 diabetes mellitus without complications; F17.210 Nicotine dependence, cigarettes, uncomplicated; W54.0XXA Bitten by dog, initial encounter
CPT/HCPCS: 12011; 99283; 99284; J2003